=== PATIENT | female | born 1965 | race Caucasian/White ===

== ENCOUNTER 2023-07-04 10:27 | Day surgery (SDC) | payer OTHER ==
[~2023-07-04] VITALS: Ht 170.2 cm; Wt 76.3 kg
[2023-07-04] MEDS ORDERED: PROZAC40 MG PO (10:57)
[2023-07-04] MEDS ORDERED: [UNRECOGNIZED DRUG - CODE] PO (10:57)
--- NOTE | 2023-07-04 12:00 | NUR ---
07/04/23 Naina Barker 2 SPRAYS EACH NOSTRIL AFRIN PER ORDERS GIVEN PRIOR TO TRANSFER TO OR PRIOR TO TRANSFER TO OR, IV IN LEFT FOREARM HAD TO BE REMOVED AND NEW IV WAS PLACED IN R HAND. HEAT APPLIED TO LEFT FOREARM.
--- NOTE | 2023-07-04 12:50 | NUR ---
07/04/23 1250 Nikkie Flores UNDER HEAD, RIGHT ARM TUCKED, LEFT ARM SEVURED WITH PADDED ARM BAORDS.
[2023-07-04 13:24] VITALS: BP 129/85
== END 2023-07-04 13:23 | disposition home or self-care (01) ==
LOC: ORSCSDS 10:27
PROVIDERS: Otolaryngology
PROC: 09JK8ZZ Inspection of Nasal Mucosa and Soft Tissue, Via Natural or Artificial Opening Endoscopic (ICD-10-PCS; principal; 2023-07-04 11:45)
DX: J34.89 Other specified disorders of nose and nasal sinuses (principal); L98.0 Pyogenic granuloma; R04.0 Epistaxis; Z79.899 Other long term (current) drug therapy
CPT/HCPCS: 88305; 88312; A9270; J0690; J1100; J2250; J2405; J3010; J7120